=== PATIENT | male | born 1965 | race Caucasian/White ===

== ENCOUNTER 2021-10-06 09:28 | Emergency (ER) | payer MEDICAID ==
[2021-10-06] MEDS ORDERED: Lidocaine 1% 10 ML MDV INJECT ONE (10:48)
== END 2021-10-06 12:45 | disposition home or self-care (01) ==
LOC: JD.ED 09:28
DX: S92.912A Unspecified fracture of left toe(s), initial encounter for closed fracture (principal); W22.09XA Striking against other stationary object, initial encounter
CPT/HCPCS: 28515; 73630-26-LT; 73630-LT; 73660-26-T2; 73660-T2; 99283-25; 99284